=== PATIENT | female | born 1970 | race Caucasian/White ===

== ENCOUNTER 2017-11-21 10:57 | Emergency (ER) | payer SELFPAY ==
[2017-11-21] MEDS ORDERED: Bupivacaine 0.5% 10 ML VIAL ONE (11:08)
[2017-11-21] MEDS ORDERED: AMOXicillin 250 MG CAP ONE (11:38)
== END 2017-11-21 11:47 ==
LOC: BURERS 10:57
DX: K04.7 Periapical abscess without sinus (principal); E03.9 Hypothyroidism, unspecified; F17.210 Nicotine dependence, cigarettes, uncomplicated; Z79.899 Other long term (current) drug therapy
CPT/HCPCS: 41800; J3490

== ENCOUNTER 2019-09-30 12:36 | Outpatient (CLI) | payer OTHER ==
--- NOTE | 2019-09-30 13:38 | RAD ---
RIGHT FOOT THREE VIEWS: 09/30/19 HISTORY: Trauma with more distal metatarsal pain. I do not see any signs of any acute fracture. There is marked deformity of the midfoot which appears to be chronic in nature. 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 I do not believe that any of these changes are acute. IMPRESSION: Marked midfoot deformity. I believe that these changes are chronic in nature. POS: [facility]
== END 2019-09-30 12:37 | disposition home or self-care (01) ==
LOC: BURRAD 12:36
DX: M79.671 Pain in right foot (principal); M21.961 Unspecified acquired deformity of right lower leg

== ENCOUNTER 2020-02-06 08:34 | Outpatient (CLI) | payer OTHER ==
[2020-02-06 09:36] LABS: Thyroid Stimulating Hormone 4.2241 uIU/mL (0.35-4.94)
[2020-02-06 19:09] LABS: Free T4 (Free Thyroxine) 1.13 ng/dL (0.70-1.48)
== END 2020-02-06 08:35 | disposition home or self-care (01) ==
LOC: BURLABSP 08:34
PROVIDERS: ATTEND Physician Assistant
DX: E03.9 Hypothyroidism, unspecified (principal)
CPT/HCPCS: 36415; 84439; 84443

== ENCOUNTER 2024-12-23 21:55 | Emergency (ER) | payer SELFPAY ==
[2024-12-23] MEDS ORDERED: Silver Nitrate Application 1 EACH ONE (22:10)
[2024-12-23] MEDS ORDERED: Tranexamic Acid 1,000 MG/10 ML VIAL ONE (22:12)
[2024-12-23] MEDS ORDERED: Lidocaine 1% PF 5 ML VIAL ONE (22:12)
== END 2024-12-23 22:36 | disposition home or self-care (01) ==
LOC: BURERS 21:55
DX: L98.499 Non-pressure chronic ulcer of skin of other sites with unspecified severity (principal); E78.00 Pure hypercholesterolemia, unspecified; E03.9 Hypothyroidism, unspecified; F17.210 Nicotine dependence, cigarettes, uncomplicated; Q85.00 Neurofibromatosis, unspecified; Z59.71 Insufficient health insurance coverage; Z79.890 Hormone replacement therapy; Z79.899 Other long term (current) drug therapy
CPT/HCPCS: 99282

== ENCOUNTER 2024-12-25 20:46 | Emergency (ER) | payer SELFPAY ==
[2024-12-25] MEDS ORDERED: HYDROcodone/Acetaminophen 10/325 mg Tablet ONE (21:01)
== END 2024-12-25 21:22 | disposition home or self-care (01) ==
LOC: BURERS 20:46
DX: L97.219 Non-pressure chronic ulcer of right calf with unspecified severity (principal); E78.5 Hyperlipidemia, unspecified; E03.9 Hypothyroidism, unspecified; F17.210 Nicotine dependence, cigarettes, uncomplicated; Z79.890 Hormone replacement therapy; Z79.899 Other long term (current) drug therapy
CPT/HCPCS: 99282